=== PATIENT | female | born 1955 | race Caucasian/White ===

== ENCOUNTER → 2023-12-25 13:43 | Outpatient (REF) | payer OTHER, SELFPAY | LOC: WDC 13:43 | PROVIDERS: ATTENDING PHYSICIAN Nurse Practitioner Family; FAMILY PHYSICIAN Family Medicine | DX: Z12.31 Encounter for screening mammogram for malignant neoplasm of breast (principal) | CPT/HCPCS: 77063; 77067 ==

== ENCOUNTER 2024-02-11 21:54 | Emergency (ER) | payer OTHER, SELFPAY ==
[2024-02-11 21:56] VITALS: BP 138/102
--- NOTE | 2024-02-11 22:07 | ED.GENMED ---
History of Present Illness
<BOZENA Lane - Last Filed: 02/11/24 23:10>
General
Chief Complaint: Abdominal Pain
Source: patient
Exam Limitations: none
Time Seen by Provider: 02/11/24 22:06
Nursing documentation reviewed up to this point in time: agreed with
History of Present Illness
History of Present Illness:
Pt is a 68 y/o F w/ PMH of diverticulitis and hypothyroidism who presents to the ED today with abdominal pain x 1 day. She states it is band-like across the lower half of her abdomen and comes in bursts. When it is active, the pt admits the pain is
severe. She notes she has drank more wine than usual over the past week and thinks this may have contributed to a diverticulitis flare. She has not taken any medication to help alleviate the pain. She denies radiation of the pain into her back or
pelvis. Pt admits that she has had flares with similar symptoms before, with the most recent occurrence being 2 years ago, which was stress-induced and she was treated without sequelae at [place] [facility]. Pt admits the last time she ate was breakfast this
morning, where she ate toast but has not eaten since because she states it made the pain worse. Pt denies fever, nausea, vomiting, back pain, changes in urination or bowel habits, PETERSON, chest pain, trouble breathing.
Past History
<BOZENA Lane - Last Filed: 02/11/24 23:10>
Past History
ED Past Medical History: Hypothyroidism and Other (diverticulitis)
Review of Systems
<BOZENA Lane - Last Filed: 02/11/24 23:10>
Review of Systems
Allergies reviewed?: Yes
Constitutional: Reports no symptoms
EENT: Reports no symptoms
Respiratory: Reports no symptoms
Cardiac: Reports no symptoms
ABD/GI: Reports abdominal pain (band-like across the lower half of the abd)
: Reports no symptoms
Musculoskeletal: Reports no symptoms
Skin: Reports no symptoms
Neurological: Reports no symptoms
Phy Exam
<BOZENA Lane - Last Filed: 02/11/24 23:10>
General Physical Exam
General Presentation: well appearing and no apparent distress
General age: appears stated age
General Skin: warm and dry
General Habitus: normal
General Mental: alert
General Hydration: appears well hydrated
Cardiovascular Exam
Cardiovascular Exam: regular rate/rhythm, no edema and no murmur
Pulmonary Exam
Pulmonary Exam: lungs clear and no respiratory distress
Gastrointestinal Exam
Gastrointestinal Exam: normal bowel sounds, soft and non distended
Course
<BOZENA Lane - Last Filed: 02/11/24 23:10>
Orders/Labs/Results
Orders:
Orders
02/11/24 22:16
Morphine Sulfate 4 mg IV NOW STA
Ondansetron Injectable [Zofran] 4 mg IV NOW STA
02/11/24 22:30
0.9% Sodium Chloride 1000 ml [Nss] 1,000 ml IV 500 mls/hr
02/11/24 22:36
Complete Blood Count/With Diff Urgent
Comprehensive Metabolic Panel Urgent
Lipase Urgent
02/11/24 23:11
Iohexol [Omnipaque] See Protocol PO NOW STA
02/12/24 01:20
CT Abd/pel W Iv And Oral Contr Urgent
Reason For Exam: abd pain
Abnormal Lab Results
02/11/24
22:36
Hgb 11.3 L g/dL
(12.0-16.0)
Hct 36.3 L %
(37.0-47.0)
MCV 69.0 L fL
(81.0-99.0)
MCH 21.5 L pg
(27.0-31.0)
MCHC 31.1 L g/dL
(33.0-37.0)
RDW 15.0 H %
(11.5-14.5)
Immature Gran % 0.6 H %
(0-0.5)
Glucose 107 H mg/dl
(70-99)
02/11/24 22:36
02/11/24 22:36
Vital Signs
Initial and Last Documented VS:
Initial Vital Signs
Temp Pulse Resp BP Pulse Ox
98.4 F 81 18 138/102 98
02/11/24 21:56 02/11/24 21:56 02/11/24 21:56 02/11/24 21:56 02/11/24 21:56
Last Documented Vital Signs
Temp Pulse Resp BP Pulse Ox
98.4 F 68 16 142/64 98
02/11/24 21:56 02/12/24 00:20 02/12/24 00:20 02/12/24 00:20 02/12/24 00:20
Westonlt;Rocky Copeland, - Last Filed: 02/12/24 02:06>
Orders/Labs/Results
Orders:
Orders
02/11/24 22:16
Morphine Sulfate 4 mg IV NOW STA
Ondansetron Injectable [Zofran] 4 mg IV NOW STA
02/11/24 22:30
0.9% Sodium Chloride 1000 ml [Nss] 1,000 ml IV 500 mls/hr
02/11/24 22:36
Complete Blood Count/With Diff Urgent
Comprehensive Metabolic Panel Urgent
Lipase Urgent
02/11/24 23:11
Iohexol [Omnipaque] See Protocol PO NOW STA
02/12/24 01:20
CT Abd/pel W Iv And Oral Contr Urgent
Reason For Exam: abd pain
Abnormal Lab Results
02/11/24
22:36
Hgb 11.3 L g/dL
(12.0-16.0)
Hct 36.3 L %
(37.0-47.0)
MCV 69.0 L fL
(81.0-99.0)
MCH 21.5 L pg
(27.0-31.0)
MCHC 31.1 L g/dL
(33.0-37.0)
RDW 15.0 H %
(11.5-14.5)
Immature Gran % 0.6 H %
(0-0.5)
Glucose 107 H mg/dl
(70-99)
02/11/24 22:36
02/11/24 22:36
Vital Signs
Initial and Last Documented VS:
Initial Vital Signs
Temp Pulse Resp BP Pulse Ox
98.4 F 81 18 138/102 98
02/11/24 21:56 02/11/24 21:56 02/11/24 21:56 02/11/24 21:56 02/11/24 21:56
Last Documented Vital Signs
Temp Pulse Resp BP Pulse Ox
98.4 F 68 16 142/64 98
02/11/24 21:56 02/12/24 00:20 02/12/24 00:20 02/12/24 00:20 02/12/24 00:20
<BOZENA Lane - Last Filed: 02/11/24 23:10>
MDM/Problems Addressed
Differential Diagnosis Includes:
diverticulitis flare, small bowel obstruction, constipation
Acute Exacerbation and/or Progression of Chronic Illness: Other (diverticulitis)
<BOZENA Lane - Last Filed: 02/11/24 23:10>
*Critical Care Note
Total Time (30-74mins, 75-104mins- exclusive of procedures): Not Applicable
<Rocky Copeland DO - Last Filed: 02/12/24 02:06>
*Pulse Oximetry
Patient hypoxic: no
<BOZENA Lane - Last Filed: 02/11/24 23:10>
Update Note
Update Note:
02/11/24 @ 11:05pm: Pt states pain is stable and is manageable with morphine; she is awaiting imaging now.
<Rocky Copeland DO - Last Filed: 02/12/24 02:06>
Update Note
Update Note:
02/11/24 @ 11:05pm: Pt states pain is stable and is manageable with morphine; she is awaiting imaging now.
CT abdomen and pelvis with IV and oral contrast
IMPRESSION:
Moderate wall thickening of mid transverse colon with surrounding fat stranding, reflecting short segment colitis. Colonic diverticulosis without focal inflammation. No bowel obstruction, abscess or free air. Normal appendix right lower quadrant.
Trace free fluid in the pelvis.
Very small hiatal hernia.
Scattered atheromatous disease.
Degenerative changes of the spine.
02/12/2024 0203 AM: Spoke with patient regarding CT scan. At this point she has colitis noninfectious.. No antibiotics ordered. She does have good follow-up. I did discuss return to ER instructions with the patient. She will follow-up with her
PCP. She has no questions at this time. Patient being discharged in improved condition.
ED Attending Note
<BOZENA Lane - Last Filed: 02/11/24 23:10>
-
Portions of this chart may have been created with voice recognition software.� Occasional wrong word or��sound alike� substitutions may have occurred due to the inherent limitations of voice recognition software.
<Rocky Copeland DO - Last Filed: 02/12/24 02:06>
ED Attending Note
Patient seen and examined by attending physician: Yes
I performed the substantive portion of visit, reviewed & personally made and approve the management plan that is documented in note by myself or DOMENICO.: Yes
ED Attending Note:
Pleasant 68-year-old female presents to the emergency department with abdominal pain for the last day. She does have a history of diverticulitis and states that this pain is similar to her previous outburst. Patient states that the pain is
intermittent and comes in waves. When its at its worst, the pain is severe. Patient admits to drinking more alcohol over the last week. Patient does have a history of diverticulitis and states that the pain feels similar. She has not taken
anything to help alleviate her pain. Patient denies any other complaints. Patient was seen in conjunction with the PA student. I have reviewed and agree with the history and treatment plan presented. On my independent physical exam, patient is
awake, alert, and oriented x3 minimal acute distress after morphine was administered. She is drinking oral contrast without issue. Heart is regular rate and rhythm. Lungs are clear to auscultation bilaterally. Abdomen is soft nontender
nondistended no hepatosplenomegaly noted. Good bowel sounds x 4 quadrants. Negative Lee sign. Negative McBurney's point tenderness. Skin is warm and dry. Patient moves all 4 extremities. Normal affect. Accompanied by friend
Discharge Plan
Departure
Patient Disposition: Home (Routine Discharge)
Date of Disposition: 02/12/24
Time of Disposition: 02:05
Patient with high blood pressure during this ER visit?: Yes
Condition: Good
Discharge Problem:
Colitis
Instructions: Colitis (DC), Abdominal Pain, BLOOD PRESSURE
Prescriptions:
No Action
Zoloft
100 mg PO DAILY
Referrals:
Bipin Gilliam DO [Family Provider] -
Activity Restrictions/Additional Instructions:
It was a pleasure meeting you and taking part in your care. We hope for your continued healing and wellness.
Please read discharge instructions in their entirety. However, they are for general education and may not describe your exact diagnosis at discharge. Information on your ER visit and medical conditions were discussed with you along with appropriate
follow up information...
If indicated, please take your medications as instructed and indicated on discharge paperwork.
Please schedule a follow up appointment as directed. Call to schedule an appointment
Please return to the emergency department with ANY change in, persisting, or worsening of symptoms. If any of your symptoms do not improve, or persist, or become more severe within 6-12 hours, please return to the emergency department for further
care.
Please return to the emergency department if you develop a headache, neck pain/stiffness, fever greater than 100.4F, chest pain, shortness of breath, persistent nausea, vomiting, slurred speech, difficulty walking, numbness/tingling, weakness, signs
of infection or any other symptoms that are worrisome to you.
If you have any questions or concerns please do not hesitate to call the Hospital at or E-mail me directly at [email or web address]
Interventions
Interventions:
*Risk Screen - Suicide Last Done: 02/11/24 22:27
*General Assessment Last Done: 02/11/24 22:27
*Neglect/Abuse Screening Last Done: 02/11/24 22:27
ED- Fall Risk Assessment Last Done: 02/12/24 02:03
*ED COVID-19 Vaccine History Last Done: 02/11/24 22:27
*Nursing Disposition Last Done: 02/12/24 02:03
QG-Qppyqx-Vprisnehbb Assessment Last Done: 02/11/24 22:30
Discharge Date and Time
Print Language: WELSH
[2024-02-11 22:27] VITALS: BP 129/69; BMI 23.9
[2024-02-11] MEDS: ZOFRAN 4 MG IV (22:38)
[2024-02-11] MEDS: NSS 1000 IV (22:38)
[2024-02-11] MEDS: MORPHINE SULFATE 4 MG IV (22:39)
[2024-02-11 22:47] LABS: % Basophils 0.9 % (0-2); % Immature Granulocytes 0.6 % (0-0.5); % Lymphocytes 27.4 % (20.5-51.1); % Neutrophils 59.1 % (42.2-75.2); Absolute Basophils 0.1 10^3/uL (0-0.2); Absolute Eosinophils 0.3 10^3/uL (0-0.7); Absolute Lymphocytes 1.9 10^3/uL (1.2-3.4); Absolute Monocytes 0.5 10^3/uL (0.1-0.6); Hematocrit 36.3 % (37.0-47.0); Hemoglobin 11.3 g/dL (12.0-16.0); Mean Corp Hgb Conc. 31.1 g/dL (33.0-37.0); Mean Corpuscular Hgb 21.5 pg (27.0-31.0); Mean Platelet Volume 10.4 fL (7.4-10.4); Nucleated Red Blood Cells % 0 %; Platelet Count 255 10^3/uL (130-400); Red Blood Cell Count 5.26 10^6/uL (4.20-5.40); White Blood Cell Count 6.8 10^3/uL (4.8-10.8)
[2024-02-11 23:00] LABS: ALT (SGPT) 22 U/L (0-35); AST (SGOT) 25 U/L (14-36); Albumin 4.5 g/dl (3.5-5.0); Alkaline Phosphatase 102 U/L (38-126); Blood Urea Nitrogen 15 mg/dl (7-17); Calcium 9.3 mg/dl (8.4-10.2); Carbon Dioxide 23 mmol/L (22-30); Chloride 105 mmol/L (98-107); Estimated Creatinine Clearance 71 ml/min; Glucose 107 mg/dl (70-99); Lipase 95 U/L (23-300); Sodium 138 mmol/L (135-145); Total Bilirubin 0.7 mg/dl (0.2-1.3); Total Protein 7.1 g/dl (6.3-8.2); eGFR > 60.00
[2024-02-11] MEDS: OMNIPAQUE 50 ML PO (23:20)
[2024-02-12 00:20] VITALS: BP 142/64
[2024-02-12] MEDS: NSS IV (00:41)
[2024-02-12 02:03] VITALS: BP 138/63
== END 2024-02-12 02:08 | disposition home or self-care (01) ==
LOC: EMR 21:54
PROVIDERS: EMERGENCY PHYSICIAN Student in an Organized Health Care Education/Training Program; FAMILY PHYSICIAN Family Medicine
DX: K52.9 Noninfective gastroenteritis and colitis, unspecified (principal); E03.9 Hypothyroidism, unspecified; K44.9 Diaphragmatic hernia without obstruction or gangrene; K57.30 Diverticulosis of large intestine without perforation or abscess without bleeding
CPT/HCPCS: 96374; 96375; 99284; 74177; 80053; 83690; 85025; Q9967

== ENCOUNTER 2024-11-13 07:02 | Emergency (ER) | payer OTHER, SELFPAY ==
[2024-11-13 07:04] VITALS: BP 163/85
[2024-11-13 07:48] VITALS: BMI 20.4
[2024-11-13] MEDS: MORPHINE SULFATE 2 MG IV (07:53)
[2024-11-13] MEDS: ZOFRAN 4 MG IV (07:55)
--- NOTE | 2024-11-13 08:12 | ED.GENMED ---
History of Present Illness
General
Chief Complaint: Abdominal Pain
Source: patient
Exam Limitations: none
Time Seen by Provider: 11/13/24 07:21
Nursing documentation reviewed up to this point in time: agreed with
History of Present Illness
History of Present Illness:
Patient with history of hypothyroidism and depression, presents to ED secondary to worsening abdominal pain since yesterday afternoon. Abdominal pain described as spasm, intermittent, nonradiating, worse with food, mildly improved at rest. Denies
trauma. Denies fever or chills. Denies recent change in medications or diet. Denies recent travel. However, patient does state that her coworker had recently returned from [place], and she does not 'appear well'. Patient states that her abdominal
pain started initially in late afternoon while she was at work. However, over time the pain subsided completely. Patient made and had rice for dinner. Approximately half hour after having dinner, her pain returned, followed by multiple episodes
of nonbloody diarrhea. Since then, abdominal pain has been intermittent, at times severe. Patient states that she has had number of similar symptoms in the past, including January 2024 when she was seen in ED for similar complaint. At that time
CT scan had revealed colitis, and she was treated conservatively without antibiotics.
Past History
Past History
ED Past Medical History: Hypothyroidism and Other (diverticulitis)
Review of Systems
Review of Systems
Allergies reviewed?: Yes
All Other Systems: ROS reviewed and negative except as documented in HPI and ROS
Constitutional: Reports no symptoms; Denies fever
ABD/GI: Reports abdominal pain, nausea and diarrhea; Denies vomiting
: Reports no symptoms
Musculoskeletal: Reports no symptoms
Skin: Reports no symptoms
Neurological: Reports no symptoms
Phy Exam
Physical Exam
Physical Exam:
Physical Exam
General: mild painful distress, not acutely ill. afebrile
Head: nc/at. eomi
Neck: supple. normal range of motion.
Heart: s1/s2 regular rate and rhythm
Lungs: no acute respiratory distress. clear bilaterally
Abdomen: normal bowel sounds. not tender. no distention
Neuro: alert and oriented x 3. no focal neurological deficits
Skin: no rash
Psychiatric: well kept. interactive and cooperative
Extremities: no edema. no calf tenderness.
Course
Orders/Labs/Results
Orders:
Orders
11/13/24 07:51
Morphine Sulfate 2 mg .ROUTE .STK-MED ONE
Ondansetron Injectable [Zofran] 4 mg .ROUTE .STK-MED ONE
11/13/24 07:52
Morphine Sulfate 2 mg IV NOW STA
11/13/24 07:55
Ondansetron Injectable [Zofran] 4 mg IV NOW STA
11/13/24 08:00
Complete Blood Count/With Diff Urgent
Comprehensive Metabolic Panel Urgent
Ferritin Urgent
Comment: ADD ON
Iron Urgent
Comment: ADD ON
Lipase Urgent
Comment: ADD ON
Magnesium Urgent
Comment: ADD ON
Total Iron Binding Urgent
Comment: ADD ON
11/13/24 08:09
Add On- LAB Urgent
Tests Added?: magnesium, lipase
Ketorolac [Toradol] 15 mg IV NOW STA
Pantoprazole [Protonix IV] 40 mg IV NOW STA
11/13/24 08:32
Add On- LAB Urgent
Tests Added?: iron, ferritin, TIBC
Abnormal Lab Results
11/13/24
08:00
RBC 5.45 H 10^6/uL
(4.20-5.40)
Hgb 11.7 L g/dL
(12.0-16.0)
Hct 36.6 L %
(37.0-47.0)
MCV 67.2 L fL
(81.0-99.0)
MCH 21.5 L pg
(27.0-31.0)
MCHC 32.0 L g/dL
(33.0-37.0)
RDW 15.1 H %
(11.5-14.5)
Immature Gran % 0.7 H %
(0-0.5)
Glucose 114 H mg/dl
(70-99)
11/13/24 08:00
11/13/24 08:00
Vital Signs
Initial and Last Documented VS:
Initial Vital Signs
Temp Pulse Resp BP Pulse Ox
97.6 F 66 16 163/85 99
11/13/24 07:04 11/13/24 07:04 11/13/24 07:04 11/13/24 07:04 11/13/24 07:04
Last Documented Vital Signs
Temp Pulse Resp BP Pulse Ox
97.6 F 62 16 151/69 98
11/13/24 07:04 11/13/24 08:03 11/13/24 07:04 11/13/24 09:55 11/13/24 09:55
MDM/Problems Addressed
MDM/Problems Addressed:
Patient with an unremarkable workup in ED, including blood work. Otherwise, patient remains afebrile, hemodynamically stable, and nontoxic-appearing. After treatment, patient reports complete resolution of her symptoms. Repeat abdominal exam:
Soft and nontender. History and exam consistent with abdominal pain with diarrhea, likely enteritis versus other viral entity, less likely any acute abdominal surgical entity, i.e. appendicitis. Return precautions provided, i.e. fever/worsening
pain/vomiting. Recommended PCP and/or GI physician follow-up as an outpatient. Patient expressed understanding time of discharge.
*Pulse Oximetry
SaO2: 99
Oxygen Mode of Delivery: Room air
Patient hypoxic: no
*Critical Care Note
Total Time (30-74mins, 75-104mins- exclusive of procedures): Not Applicable
ED Attending Note
-
Portions of this chart may have been created with voice recognition software.� Occasional wrong word or��sound alike� substitutions may have occurred due to the inherent limitations of voice recognition software.
Discharge Plan
Departure
Patient Disposition: Home (Routine Discharge)
Date of Disposition: 11/13/24
Time of Disposition: 09:42
Patient with high blood pressure during this ER visit?: Yes
Condition: Good
Discharge Problem:
Diarrhea
Instructions: Abdominal pain in adults (DC), [place] diet, Acute Diarrhea
Prescriptions:
No Action
Zoloft
100 mg PO DAILY
Referrals:
Bipin Gilliam DO [Family Provider, Family Practice]
Bethany Connor DO [Active, Gastroenterology]
Activity Restrictions/Additional Instructions:
As discussed, please follow-up with your primary physician and/or referred GI physician for reevaluation. Please consider return to ED with worsening symptoms, i.e. fever/worsening pain/vomiting. In addition, recommend outpatient stool studies, if
your diarrhea persists.
Interventions
Interventions:
*Risk Screen - Suicide Last Done: 11/13/24 07:04
*General Assessment Last Done: 11/13/24 07:04
*Neglect/Abuse Screening Last Done: 11/13/24 07:04
*ED COVID-19 Vaccine History Last Done: 11/13/24 07:04
*Nursing Disposition Last Done: 11/13/24 10:30
TW-Hvoltf-Ukrhgvmyms Assessment Last Done: 11/13/24 09:00
Discharge Date and Time
Discharge Date/Time: 11/13/24 11:54
Print Language: SWEDISH
[2024-11-13 08:26] LABS: Hematocrit 36.6 % (37.0-47.0); Hemoglobin 11.7 g/dL (12.0-16.0); Mean Corp Hgb Conc. 32.0 g/dL (33.0-37.0); Mean Corpuscular Volume 67.2 fL (81.0-99.0); Nucleated Red Blood Cells % 0 %; Platelet Count 255 10^3/uL (130-400); Red Cell Dist. Width 15.1 % (11.5-14.5)
[2024-11-13 08:29] LABS: ALT (SGPT) 23 U/L (0-35); AST (SGOT) 24 U/L (14-36); Albumin 4.6 g/dl (3.5-5.0); Alkaline Phosphatase 107 U/L (38-126); Blood Urea Nitrogen 13 mg/dl (7-17); Calcium 9.5 mg/dl (8.4-10.2); Carbon Dioxide 27 mmol/L (22-30); Chloride 105 mmol/L (98-107); Estimated Creatinine Clearance 65 ml/min; Glucose 114 mg/dl (70-99); Potassium 4.4 mmol/L (3.5-5.1); Sodium 138 mmol/L (135-145); Total Protein 7.1 g/dl (6.3-8.2); eGFR > 60.00
[2024-11-13] MEDS: TORADOL 15 MG IV (08:29)
[2024-11-13] MEDS: PROTONIX IV 40 MG IV (08:30)
[2024-11-13 09:16] LABS: Iron 75 ug/dl (37-170); Lipase 68 U/L (23-300); Magnesium 2.3 mg/dl (1.6-2.3)
[2024-11-13 09:24] LABS: Total Iron Binding Capacity 304 ug/dl (265-497)
[2024-11-13 09:55] VITALS: BP 151/69
[2024-11-13 11:45] LABS: Ferritin 75.9 ng/ml (11.1-264.0)
== END 2024-11-13 11:54 | disposition home or self-care (01) ==
LOC: EMR 07:02
PROVIDERS: EMERGENCY PHYSICIAN Emergency Medicine; FAMILY PHYSICIAN Family Medicine
DX: R19.7 Diarrhea, unspecified (principal); E03.9 Hypothyroidism, unspecified; F32.A Depression, unspecified
CPT/HCPCS: 99284; 96374; 96375 ×3; 80053; 82728; 83540; 83550; 83690; 83735; 85025